=== PATIENT | female | born 1965 | race Caucasian/White ===

== ENCOUNTER 2016-09-19 08:40 | Emergency (ER) | payer BC ==
[2016-09-19 08:48] VITALS: BP 134/96
[2016-09-19 09:55] LABS: CHLORIDE,CL 101 mmol/L (98-107); SODIUM,NA 140 mmol/L (136-145)
--- NOTE | 2016-09-22 08:09 | ER ---
Date of Service: 09/19/2016 SUBJECTIVE: The patient presents to the emergency room with complaints of feeling lightheaded and nauseated for the past day and a half. She also complains of body aches and chills. She states she is not experiencing any vomiting or diarrhea. The patient states that she has not had any recent sick contacts. She states that she has not been experiencing any significant sore throat. PAST MEDICAL HISTORY: Migraine, headaches. MEDICATIONS: 1. Tramadol. 2. Ibuprofen. 3. Gabapentin. 4. Topamax. 5. Cyclobenzaprine. ALLERGIES: 1. Aspirin. 2. Toradol. 3. Imitrex. REVIEW OF SYSTEMS: General: Positive for fever and chills. HEENT: No sore throat, rhinorrhea, or congestion. Respiratory: No shortness of breath. Cardiac: Denies any substernal chest pain. No jaw, arm, neck, or back pain. Gastrointestinal: No abdominal pain. Genitourinary: Does complain of some mild dysuria. Remainder of her review of systems is within normal limits. PHYSICAL EXAMINATION: General: This is a 51-year-old female patient. No acute distress. Vital Signs: Blood pressure is 134/96, pulse rate is 88, temperature is 36.1, and respiratory rate is 18. Skin: Warm, pink, and dry. HEENT: Head is normocephalic, atraumatic. Mouth, oral mucosa is moist. No erythema or exudate noted in the hypopharynx. Neck: Supple. No masses. There is no lymphadenopathy. Lungs: Clear to auscultation. Heart: Regular rate and rhythm. Abdomen: Soft, nontender. There is no hepatosplenomegaly or masses noted. Extremities: Without edema. Neurologic: She is alert and oriented. Answers all questions appropriately. Her speech is fluent. Her gait is within normal limits. DIAGNOSTIC DATA: Urinalysis was obtained and was positive for trace of occult blood and she did have moderate leukocyte esterase, negative nitrites. She did have 10-20 wbc's per high-power field. Lactic acid was 1.1. Comprehensive metabolic panel was all noted to be within normal limits. CBC was all noted to be within normal limits. Influenza A and B were obtained, one were negative. Blood cultures x2 were obtained and are pending. ASSESSMENT: Urinary tract infection. PLAN: The patient will be started on Bactrim DS 1 twice daily for 7 days. Drink plenty of fluids. Tylenol and ibuprofen for fever and discomfort. All questions were answered. MWK: 09/21/2016 06:18:23 MODL: 09/21/2016 11:16:43 /[id number]
== END 2016-09-19 10:38 | disposition home or self-care (01) ==
LOC: VM.ED 08:40
DX: N39.0 Urinary tract infection, site not specified (principal); R50.9 Fever, unspecified; G43.909 Migraine, unspecified, not intractable, without status migrainosus; Z79.899 Other long term (current) drug therapy; Z88.8 Allergy status to other drugs, medicaments and biological substances
CPT/HCPCS: 36415; 71020; 80053; 81001; 83605; 85025; 86140; 87040; 87081; 87804; 87880; 99283

== ENCOUNTER 2016-10-04 11:50 | Emergency (ER) | payer BC ==
[2016-10-04 12:03] VITALS: BP 136/91
[2016-10-04] MEDS ORDERED: Ondansetron 4 MG Tab.DIS PO ONE (12:26)
[2016-10-04] MEDS ORDERED: diphenhydrAMINE 25 MG Cap PO ONE (12:26)
--- NOTE | 2016-10-04 12:31 | EDM.PDOC ---
ED HPI HEADACHE COMPLAINT - General Chief Complaint: Headache Stated Complaint: Migraine Time Seen by Provider: 10/04/16 12:22 Source of Information: Reports: Patient History Limitations: Reports: No limitations - History of Present Illness INITIAL COMMENTS - FREE TEXT/NARRATIVE: Patient woke up with migraine headache and did have an emesis throwing up 2 motrins. She does have a history of this. Allergic to toradol and imitrex. Describes headache as throbbing, does not have a point of origin but is her whole head. Light and sounds make worse. Headaches are not daily or weekly, but she does have them periodically. Similar symptoms to prior headaches. No one sided weakness or numbness. Denies smoking, drinking or drug use. Symptom Onset Date: 10/04/16 Symptom Onset Time: 08:00 Timing/Duration: Reports: sudden onset Location: Reports: generalized Quality: Reports: other (throbbing) Severity: Reports: moderate, similar to past headaches Associated Symptoms: Reports: photophobia - Related Data Allergies/ADRs: Allergies Allergy/AdvReac Type Severity Reaction Status Date / Time aspirin Allergy Nausea Verified 10/04/16 11:58 ketorolac tromethamine Allergy Nausea Verified 10/04/16 11:58 [From Toradol] sumatriptan [From Imitrex] Allergy Nausea Verified 10/04/16 11:58 sumatriptan succinate Allergy Nausea Verified 10/04/16 11:58 [From Imitrex] Home Meds: Home Meds Ibuprofen 400 mg PO Q4H PRN 07/20/14 [History] Gabapentin [Neurontin] 300 mg PO TID 09/19/16 [History] Past Medical History Neurological History: Reports: Migraines Oncologic (Cancer) History: Reports: Malignant melanoma - Past Surgical History Female Surgical History: Reports: Hysterectomy Musculoskeletal Surgical History: Reports: Arthroscopic procedure Social & Family History - Tobacco Use Smoking Status *Q: Former Smoker Used Tobacco, but Quit: Yes Month Tobacco Last Used: 30 years ago - Caffeine Use Caffeine Use: Reports: Soda - Alcohol Use Days Per Week of Alcohol Use: 0 - Recreational Drug Use Recreational Drug Use: No ED ROS GENERAL - Review of Systems Review Of Systems: See Below Constitutional: Reports: no symptoms HEENT: Reports: No symptoms Respiratory: Reports: No Symptoms Cardiovascular: Reports: No symptoms Endocrine: Reports: no symptoms GI/Abdominal: Reports: Nausea, Vomiting : Reports: no symptoms Musculoskeletal: Reports: no symptoms Skin: Reports: no symptoms Neurological: Reports: Headache Psychiatric: Reports: No symptoms Hematologic/Lymphatic: Reports: no symptoms Immunologic: Reports: no symptoms - Physical Exam Exam: See Below Exam Limited By: No limitations General Appearance: alert, WD/WN, mild distress Eye Exam: bilateral eye: EOMI, PERRL Head Exam: atraumatic, normocephalic Neck: normal inspection Respiratory/Chest: no respiratory distress, lungs clear, normal breath sounds Cardiovascular: normal peripheral pulses, regular rate, rhythm GI/Abdominal: normal bowel sounds, soft, non tender Neuro Exam (Abbreviated): alert, oriented, CN II-XII intact, normal cognition, normal gait, normal reflexes Extremities: normal inspection, normal range of motion, normal capillary refill Psychiatric: normal affect, normal mood Skin Exam: Warm, Dry, Intact Course - Vital Signs Last Recorded V/S: Last Vital Signs Temp 35.8 C 10/04/16 12:02 Pulse 85 10/04/16 12:02 Resp 16 10/04/16 12:02 BP 136/91 H 10/04/16 12:02 Pulse Ox 100 10/04/16 12:02 - Orders/Labs/Meds Meds: Medications Discontinued Medications Generic Name Dose Route Start Last Admin Trade Name Purvi PRN Reason Stop Dose Admin Chlorpromazine HCl 25 mg 10/04/16 12:26 10/04/16 12:51 Thorazine IM 10/04/16 12:27 25 mg ONETIME ONE Administration Diphenhydramine HCl 25 mg 10/04/16 12:26 10/04/16 12:51 Benadryl PO 10/04/16 12:27 25 mg ONETIME ONE Administration Ondansetron HCl 4 mg 10/04/16 12:26 10/04/16 12:51 Zofran Odt PO 10/04/16 12:27 4 mg ONETIME ONE Administration Departure - Departure Time of Disposition: 12:56 Disposition: Home, Self-Care 01 Condition: good Clinical Impression: Migraine Instructions: Recurrent Migraine Headache, [id number] Referrals: Jameson Garcia MD [Primary Care Provider] - Forms: ED Department Discharge Additional Instructions: Try to stay hydrated, this can help prevent migraines. You can always keep a diary to attempt to determine any other triggers; whether they be dietary, stress, exercise, emotional. Please call us with any questions or concerns. - Problem List & Annotations (1) Migraine SNOMED Code(s): 55745536 Code(s): G43.909 - MIGRAINE, UNSP, NOT INTRACTABLE, WITHOUT STATUS MIGRAINOSUS Status: Acute Priority: Medium - Problem List Review Problem List Initiated/Reviewed/Updated: Yes - Assessment/Plan Assessment:: migraine Plan: Try to stay hydrated, this can help prevent migraines. You can always keep a diary to attempt to determine any other triggers; whether they be dietary, stress, exercise, emotional. Please call us with any questions or concerns.
== END 2016-10-04 12:56 | disposition home or self-care (01) ==
LOC: VM.ED 11:50 → SUPCPDRO 11:50 → VM.ED 12:56
DX: G43.909 Migraine, unspecified, not intractable, without status migrainosus (principal); Z88.6 Allergy status to analgesic agent; Z88.8 Allergy status to other drugs, medicaments and biological substances; Z87.891 Personal history of nicotine dependence
CPT/HCPCS: 96372; 99283; A9270; J3230

== ENCOUNTER 2017-01-03 13:44 | Emergency (ER) | payer SELFPAY ==
--- NOTE | 2017-01-03 13:53 | EDM.PDOC ---
ED HPI GENERAL MEDICAL PROBLEM - General Chief Complaint: Back Pain or Injury Stated Complaint: thoracic back pain; no injury Time Seen by Provider: 01/03/17 13:48 Source of Information: Reports: Patient, Family, RN, RN Notes Reviewed History Limitations: Reports: No Limitations - History of Present Illness INITIAL COMMENTS - FREE TEXT/NARRATIVE: Patient presents ambulatory to the ED at [facility] complaining of thoracic back pain that started 2 days ago. Patient denies any injury or trauma. Patient states the pain was spontaneous and not sure why it hurts. No radiation of the pain. No numbness, tingling, or paresthesia. Patient is sharp and stabbing with certainly movements. Onset: Gradual Onset Date: 01/01/17 Duration: Getting Worse, Waxing/Waning Location: Reports: Back Quality: Reports: Sharp, Stabbing Severity: Moderate Improves with: Reports: None Worsens with: Reports: Movement Context: Denies: Activity, Exercise, Lifting, Sick Contact, Trauma Associated Symptoms: Reports: No Other Symptoms Middle Back Pain Score (Numeric/FACES): 10 - Related Data Allergies Allergy/AdvReac Type Severity Reaction Status Date / Time aspirin Allergy Nausea Verified 10/04/16 11:58 ketorolac tromethamine Allergy Nausea Verified 10/04/16 11:58 [From Toradol] sumatriptan [From Imitrex] Allergy Nausea Verified 10/04/16 11:58 sumatriptan succinate Allergy Nausea Verified 10/04/16 11:58 [From Imitrex] Home Meds: Home Meds Ibuprofen 400 mg PO Q4H PRN 07/20/14 [History] Gabapentin [Neurontin] 300 mg PO TID 09/19/16 [History] Past Medical History Neurological History: Reports: Migraines Oncologic (Cancer) History: Reports: Malignant Melanoma - Past Surgical History Musculoskeletal Surgical History: Reports: Arthroscopic Procedure Social & Family History - Tobacco Use Smoking Status *Q: Former Smoker Used Tobacco, but Quit: Yes Month Tobacco Last Used: 30 years ago - Caffeine Use Caffeine Use: Reports: Soda - Alcohol Use Days Per Week of Alcohol Use: 0 - Recreational Drug Use Recreational Drug Use: No ED ROS GENERAL - Review of Systems Review Of Systems: See Below Constitutional: Denies: Fever, Chills, Weakness Respiratory: Denies: Shortness of Breath, Cough Cardiovascular: Denies: Chest Pain, Palpitations Musculoskeletal: Reports: Back Pain, Muscle Pain, Muscle Stiffness Skin: Reports: No Symptoms Neurological: Reports: No Symptoms. Denies: Headache, Numbness, Paresthesia, Tingling ED EXAM,LOWER BACK PAIN/INJURY - Physical Exam Exam: See Below Exam Limited By: No Limitations General Appearance: Alert, No Apparent Distress Head: Atraumatic, Normocephalic Neck: Supple Respiratory/Chest: No Respiratory Distress, Lungs Clear, Normal Breath Sounds Cardiovascular: Regular Rate, Rhythm Back Exam: Decreased Range of Motion, Muscle Spasm, Paraspinal Tenderness Extremities: Normal Inspection Neurological: Alert, Oriented x 3 Skin Exam: Warm, Dry, Intact, Normal Color, No Rash Course - Vital Signs Last Recorded V/S: Last Vital Signs Temp 37.3 C 01/03/17 14:03 Pulse 98 01/03/17 14:03 Resp 12 01/03/17 14:03 BP 130/80 01/03/17 14:03 Pulse Ox 100 01/03/17 14:03 - Orders/Labs/Meds Orders: Active Orders 24 hr Category Date Time Status Thoracic Spine 3V [CR] Stat Exams 01/03/17 13:48 Taken Cyclobenzaprine [Take Home: Cyclobenzaprine 10 MG, 4 Med 01/03/17 16:12 Once Tab Pack] 1 packet PO ONETIME ONE Meds: Medications Discontinued Medications Generic Name Dose Route Start Last Admin Trade Name Purvi PRN Reason Stop Dose Admin Orphenadrine Citrate 60 mg 01/03/17 13:54 01/03/17 14:00 Norflex IM 01/03/17 13:55 60 mg ONETIME ONE Administration - Radiology Interpretation Free Text/Narrative:: Plain film thoracic xray: NO readiographic evidence of an acute fracture or other significant abnormality See scanned document in EMR CT Results Date: 01/03/17 CT Results Time: 16:03 Departure - Departure Time of Disposition: 16:13 Disposition: Home, Self-Care 01 Condition: Good Clinical Impression: Spasm of thoracic back muscle - Discharge Information Instructions: Muscle Cramps and Spasms, Back Pain, Adult, [id number] Referrals: Jameson Garcia MD [Primary Care Provider] - Forms: ED Department Discharge Additional Instructions: 1. Stay well hydrated and rest 2. Take muscle relaxers when needed 3. Alternate heat/ice to the back pain area 4. May alternate Tylenol/Advil as needed for pain 5. See your Primary as symptoms warrant - Problem List Review Problem List Initiated/Reviewed/Updated: Yes - My Orders Last 24 Hours: My Active Orders 01/03/17 13:48 Thoracic Spine 3V [CR] Stat 01/03/17 16:12 Cyclobenzaprine [Take Home: Cyclobenzaprine 10 MG, 4 Tab Pack] 1 packet PO ONETIME ONE - Assessment/Plan Last 24 Hours: My Active Orders 01/03/17 13:48 Thoracic Spine 3V [CR] Stat 01/03/17 16:12 Cyclobenzaprine [Take Home: Cyclobenzaprine 10 MG, 4 Tab Pack] 1 packet PO ONETIME ONE
[2017-01-03 14:10] VITALS: BP 130/80
[2017-01-03] MEDS ORDERED: Take Home: Cyclobenzaprine 10 MG Tab, 4 Tab Pack PO ONE (16:12)
== END 2017-01-03 16:20 | disposition home or self-care (01) ==
LOC: VM.ED 13:44
DX: M62.830 Muscle spasm of back (principal); Z88.6 Allergy status to analgesic agent; Z88.8 Allergy status to other drugs, medicaments and biological substances; Z87.891 Personal history of nicotine dependence
CPT/HCPCS: 72072; 96372; 99283; J2360; A9270-GY

== ENCOUNTER 2017-12-11 19:11 | Emergency (ER) | payer SELFPAY ==
[2017-12-11] MEDS ORDERED: Ketorolac 60 MG/2 ML SDV IM ONE (19:41)
[2017-12-11] MEDS ORDERED: diphenhydrAMINE 50 MG/ML SDV IM ONE (19:41)
[2017-12-11 20:25] VITALS: BP 124/91
--- NOTE | 2017-12-12 11:10 | EDM.PDOC ---
ED HPI GENERAL MEDICAL PROBLEM - General Chief Complaint: Headache Stated Complaint: Migraine Time Seen by Provider: 12/11/17 19:40 Source of Information: Reports: Patient History Limitations: Reports: No Limitations - History of Present Illness INITIAL COMMENTS - FREE TEXT/NARRATIVE: Pt. presents to ER with complaints of migraine headache for 24 hours. She denies any trauma to the head. +photophobia. States that she woke with the symptoms. She has a long history of migraine headaches and states that this is similar to migraines she has had in the past. She denies any fever or chills. No numbness/tingling in extremities. Location: Reports: Head Quality: Reports: Ache Treatments ICT TEACHER: Reports: Acetaminophen, Other Medication(s) Other Treatments ICT TEACHER: Tramadol Migraine Pain Score (Numeric/FACES): 10 - Related Data Allergies Allergy/AdvReac Type Severity Reaction Status Date / Time aspirin Allergy Nausea Verified 12/11/17 20:14 ketorolac tromethamine Allergy Nausea Verified 12/11/17 20:14 [From Toradol] sumatriptan [From Imitrex] Allergy Nausea Verified 12/11/17 20:14 sumatriptan succinate Allergy Nausea Verified 12/11/17 20:14 [From Imitrex] Home Meds: Home Meds Ibuprofen 400 mg PO Q4H PRN 07/20/14 [History] Gabapentin [Neurontin] 300 mg PO TID 09/19/16 [History] Past Medical History - Past Health History Medical/Surgical History: Denies Medical/Surgical History [employer]IVER History: Reports: Other (See Below) 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 Hysterectomy. Breast Reduction Neurological History: Reports: Migraines Oncologic (Cancer) History: Reports: Malignant Melanoma - Past Surgical History Female Surgical History: Reports: Hysterectomy Musculoskeletal Surgical History: Reports: Arthroscopic Procedure, Carpal Tunnel Other Musculoskeletal Surgeries/Procedures:: Patient states she has cancer in her leg and is not treating it Social & Family History - Tobacco Use Smoking Status *Q: Never Smoker - Caffeine Use Caffeine Use: Reports: Soda - Recreational Drug Use Recreational Drug Use: No ED ROS GENERAL - Review of Systems Review Of Systems: See Below Constitutional: Reports: No Symptoms HEENT: Reports: No Symptoms Respiratory: Reports: No Symptoms Cardiovascular: Reports: No Symptoms Endocrine: Reports: No Symptoms GI/Abdominal: Reports: No Symptoms : Reports: No Symptoms Musculoskeletal: Reports: No Symptoms Skin: Reports: No Symptoms Neurological: Reports: Headache. Denies: Dizziness, Numbness, Paresthesia, Pre- Existing Deficit, Seizure, Syncope, Tingling, Tremors, Trouble Speaking, Difficulty Walking, Weakness, Change in Speech, Gait Disturbance Psychiatric: Reports: No Symptoms Hematologic/Lymphatic: Reports: No Symptoms Immunologic: Reports: No Symptoms ED EXAM, GENERAL - Physical Exam Exam: See Below Exam Limited By: No Limitations General Appearance: Alert, WD/WN, No Apparent Distress Eye Exam: Bilateral Eye: EOMI, Normal Fundi, Normal Inspection Ears: Normal External Exam, Normal Canal, Hearing Grossly Normal, Normal TMs Ear Exam: Bilateral Ear: Auricle Normal, Canal Normal, TM normal Nose: Normal Inspection, Normal Mucosa, No Blood Throat/Mouth: Normal Inspection, Normal Lips, Normal Teeth, Normal Gums, Normal Oropharynx, Normal Voice, No Airway Compromise Head: Atraumatic, Normocephalic Neck: Normal Inspection, Supple, Non-Tender, Full Range of Motion Respiratory/Chest: No Respiratory Distress, Lungs Clear, Normal Breath Sounds, No Accessory Muscle Use, Chest Non-Tender Cardiovascular: Normal Peripheral Pulses, Regular Rate, Rhythm, No Edema, No Gallop, No JVD, No Murmur, No Rub Extremities: Normal Inspection, Normal Range of Motion, Non-Tender, Normal Capillary Refill, No Pedal Edema Neurological: Alert, Oriented, CN II-XII Intact, Normal Cognition, Normal Gait, Normal Reflexes, No Motor/Sensory Deficits Psychiatric: Normal Affect, Normal Mood Skin Exam: Warm, Dry, Intact, Normal Color, No Rash Lymphatic: No Adenopathy Course - Vital Signs Last Recorded V/S: Last Vital Signs Temp 36.6 C 12/11/17 19:40 Pulse 84 12/11/17 19:40 Resp 14 12/11/17 19:40 BP 124/91 H 12/11/17 19:40 Pulse Ox 95 12/11/17 19:40 - Orders/Labs/Meds Meds: Medications Discontinued Medications Generic Name Dose Route Start Last Admin Trade Name Freq PRN Reason Stop Dose Admin Chlorpromazine HCl 50 mg 12/11/17 19:40 12/11/17 20:02 Thorazine IM 12/11/17 19:41 50 mg ONETIME ONE Administration Diphenhydramine HCl 50 mg 12/11/17 19:41 12/11/17 20:02 Benadryl IM 12/11/17 19:42 50 mg ONETIME ONE Administration Ketorolac Tromethamine 60 mg 12/11/17 19:41 12/11/17 20:02 Toradol IM 12/11/17 19:42 Not Given ONETIME ONE Departure - Departure Time of Disposition: 20:21 Disposition: Home, Self-Care 01 Clinical Impression: Migraine - Discharge Information Instructions: Migraine Headache, [id number] Referrals: Jameson Garcia MD [Primary Care Provider] - Forms: ED Department Discharge Additional Instructions: Home to rest. Follow-up in clinic in 7-10 days, sooner if not improving.
== END 2017-12-11 20:21 | disposition home or self-care (01) ==
LOC: SUPCPDRO 19:11 → VM.ED 19:11
DX: G43.909 Migraine, unspecified, not intractable, without status migrainosus (principal); Z88.8 Allergy status to other drugs, medicaments and biological substances; Z88.6 Allergy status to analgesic agent
CPT/HCPCS: 96372; 99283; J1200; J3230

== ENCOUNTER 2018-02-26 17:44 | Emergency (ER) | payer MEDICAID ==
[2018-02-26 17:56] VITALS: BP 133/89
--- NOTE | 2018-02-26 18:13 | EDM.PDOC ---
ED HPI GENERAL MEDICAL PROBLEM - General Chief Complaint: Lower Extremity Injury/Pain Stated Complaint: knee pain Time Seen by Provider: 02/26/18 17:45 Source of Information: Reports: Patient History Limitations: Reports: No Limitations - History of Present Illness INITIAL COMMENTS - FREE TEXT/NARRATIVE: Pt comes into the Emergency Room with complaint of knee pain. Pt states her "knee gave out" when she was walking. She did not fall when it "gave out" but she did have pain right away. Pt is able to ambulate on her own will but does hurt when she bears weight. Denies any swelling, redness, warmth, numbness, tingling, or pain radiating up or down her leg. The pain is localized to the lateral aspect of the knee and when it is elevated the pain is much less. Onset: Sudden Onset Time: 18:20 Duration: Constant Location: Reports: Lower Extremity, Left Quality: Reports: Ache, Throbbing Improves with: Reports: Immobilization, Rest Worsens with: Reports: Movement Left Knee Pain Score (Numeric/FACES): 10 - Related Data Allergies Allergy/AdvReac Type Severity Reaction Status Date / Time aspirin Allergy Nausea Verified 02/26/18 17:51 ketorolac tromethamine Allergy Nausea Verified 02/26/18 17:51 [From Toradol] sumatriptan [From Imitrex] Allergy Nausea Verified 02/26/18 17:51 sumatriptan succinate Allergy Nausea Verified 02/26/18 17:51 [From Imitrex] Home Meds: Home Meds Ibuprofen 400 mg PO Q4H PRN 07/20/14 [History] Past Medical History - Past Health History Medical/Surgical History: Denies Medical/Surgical History 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 Hysterectomy. Breast Reduction Neurological History: Reports: Migraines Oncologic (Cancer) History: Reports: Malignant Melanoma - Past Surgical History Female Surgical History: Reports: Hysterectomy Musculoskeletal Surgical History: Reports: Arthroscopic Procedure, Carpal Tunnel Other Musculoskeletal Surgeries/Procedures:: Patient states she has cancer in her leg and is not treating it Social & Family History - Tobacco Use Smoking Status *Q: Never Smoker - Caffeine Use Caffeine Use: Reports: Soda Review of Systems - Review of Systems Review Of Systems: ROS reveals no pertinent complaints other than HPI. ED EXAM, GENERAL - Physical Exam Exam: See Below Exam Limited By: No Limitations General Appearance: Alert, WD/WN, No Apparent Distress Eye Exam: Bilateral Eye: EOMI, PERRL Head: Atraumatic, Normocephalic Neck: Normal Inspection, Supple, Non-Tender, Full Range of Motion Respiratory/Chest: No Respiratory Distress, Lungs Clear, Normal Breath Sounds, No Accessory Muscle Use, Chest Non-Tender Cardiovascular: Normal Peripheral Pulses, Regular Rate, Rhythm, No Edema Back Exam: Normal Inspection, Full Range of Motion Extremities: Normal Inspection, No Pedal Edema, Normal Capillary Refill, Leg Pain. No: Pedal Edema, Slow Capillary Refill, Joint Swelling, Arm Pain, Increased Warmth, Mottled, Pallor, Redness Neurological: Alert, Oriented, CN II-XII Intact Psychiatric: Normal Affect, Normal Mood Skin Exam: Warm, Dry, Intact, Normal Color, No Rash Course - Vital Signs Last Recorded V/S: Last Vital Signs Temp 37.5 C 02/26/18 17:53 Pulse 92 02/26/18 17:53 Resp 16 02/26/18 17:53 BP 133/89 02/26/18 17:53 Pulse Ox 100 02/26/18 17:53 Departure - Departure Time of Disposition: 18:10 Disposition: Home, Self-Care 01 Condition: Good Clinical Impression: Strain of left knee Qualifiers: Encounter type: initial encounter Qualified Code(s): S86.912A - Strain of unspecified muscle(s) and tendon(s) at lower leg level, left leg, initial encounter - Discharge Information *PRESCRIPTION DRUG MONITORING PROGRAM REVIEWED*: Not Applicable *COPY OF PRESCRIPTION DRUG MONITORING REPORT IN PATIENT BERTO: Not Applicable Instructions: Muscle Strain, [id number] Referrals: Jameson Garcia MD [Primary Care Provider] - Forms: ED Department Discharge Additional Instructions: 1. rest 2. use ice on the extremity 4 times a day for 20 minute intervals 3. Elevate the extremity above the level of the heart as much as possible over the course of the next 2-3 days 4. Can use Tylenol and ibuprofen as needed 5. Activity and diet as tolerated 6. Use brace immobilizer to help with support instability for the next 3-5 days. Can take off during shower and nighttime 7. If not better in 2 weeks it is advisable to follow up with her PCP for further evaluation and treatment options 8. If any questions and concerns arise please contact the emergency department or your primary care provider - Assessment/Plan Assessment:: 1. Knee pain Plan: 1. Brace to right knee for stability 2. Education regarding [facility].I.C.[facility] 3. Follow up instructions given
== END 2018-02-26 18:15 | disposition home or self-care (01) ==
LOC: VM.ED 17:44
DX: S86.912A Strain of unspecified muscle(s) and tendon(s) at lower leg level, left leg, initial encounter (principal); Z88.6 Allergy status to analgesic agent; Z88.8 Allergy status to other drugs, medicaments and biological substances; X58.XXXA Exposure to other specified factors, initial encounter
CPT/HCPCS: 99283

== ENCOUNTER 2018-07-31 14:11 | Emergency (ER) | payer MEDICAID ==
[2018-07-31] MEDS ORDERED: diphenhydrAMINE 50 MG/ML SDV IM ONE (14:50)
[2018-07-31] MEDS ORDERED: Ondansetron 4 MG/2 ML SDV IM ONE (14:51)
--- NOTE | 2018-07-31 15:02 | EDM.PDOC ---
ED HPI GENERAL MEDICAL PROBLEM - General Chief Complaint: Headache Stated Complaint: HEADACHE Time Seen by Provider: 07/31/18 14:43 Source of Information: Reports: Patient History Limitations: Reports: No Limitations - History of Present Illness INITIAL COMMENTS - FREE TEXT/NARRATIVE: Patient presents with complaints of migraine headache that started last night. Similar to others she has had in the past. Described as unilateral, throbbing, made worse by bright lights and loud noises. Describes nausea, vomiting. No abdominal pain. No blood emesis, urine, or stools. 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 Onset: Gradual Onset Date: 07/30/18 Duration: Intermittent Location: Reports: Head Quality: Reports: Throbbing Severity: Severe Improves with: Reports: None Worsens with: Reports: None Associated Symptoms: Reports: Nausea/Vomiting Headache Pain Score (Numeric/FACES): 10 - Related Data Allergies Allergy/AdvReac Type Severity Reaction Status Date / Time aspirin Allergy Nausea Verified 07/31/18 14:26 ketorolac tromethamine Allergy Nausea Verified 07/31/18 14:26 [From Toradol] sumatriptan [From Imitrex] Allergy Nausea Verified 07/31/18 14:26 sumatriptan succinate Allergy Nausea Verified 07/31/18 14:26 [From Imitrex] Home Meds: Home Meds Ibuprofen 400 mg PO Q4H PRN 07/20/14 [History] Past Medical History - Past Health History Medical/Surgical History: Denies Medical/Surgical History MEDIA EXECUTIVE History: Reports: Other (See Below) Other MEDIA EXECUTIVE 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 Hysterectomy. Breast Reduction Neurological History: Reports: Migraines Oncologic (Cancer) History: Reports: Malignant Melanoma - Past Surgical History Female Surgical History: Reports: Hysterectomy Musculoskeletal Surgical History: Reports: Arthroscopic Procedure, Carpal Tunnel Other Musculoskeletal Surgeries/Procedures:: Patient states she has cancer in her leg and is not treating it Social & Family History - Tobacco Use Smoking Status *Q: Never Smoker - Caffeine Use Caffeine Use: Reports: Soda - Recreational Drug Use Recreational Drug Use: No ED ROS GENERAL - Review of Systems Review Of Systems: See Below Constitutional: Reports: No Symptoms HEENT: Reports: No Symptoms Respiratory: Reports: No Symptoms Cardiovascular: Reports: No Symptoms Endocrine: Reports: No Symptoms GI/Abdominal: Reports: Nausea, Vomiting : Reports: No Symptoms Musculoskeletal: Reports: No Symptoms Skin: Reports: No Symptoms Neurological: Reports: Headache Psychiatric: Reports: No Symptoms Hematologic/Lymphatic: Reports: No Symptoms Immunologic: Reports: No Symptoms - Physical Exam Exam: See Below Exam Limited By: No Limitations General Appearance: Alert, WD/WN, No Apparent Distress Eye Exam: Bilateral Eye: EOMI, Normal Inspection, PERRL Ears: Normal TMs Throat/Mouth: Normal Inspection, Normal Lips, Normal Teeth, Normal Gums, Normal Oropharynx, Normal Voice, No Airway Compromise Head Exam: Atraumatic, Normocephalic Neck: Normal Inspection, Supple, Non-Tender, Full Range of Motion Respiratory/Chest: No Respiratory Distress, Lungs Clear, Normal Breath Sounds, No Accessory Muscle Use, Chest Non-Tender Cardiovascular: Normal Peripheral Pulses, Regular Rate, Rhythm, No Edema, No Gallop, No JVD, No Murmur, No Rub GI/Abdominal: Normal Bowel Sounds, Soft, Non-Tender, No Organomegaly, No Distention, No Abnormal Bruit, No Mass Neuro Exam (Abbreviated): Alert, Oriented, CN II-XII Intact, Normal Cognition, Normal Gait, Normal Reflexes, No Motor/Sensory Deficits Back Exam: Normal Inspection, Full Range of Motion, NT Extremities: Normal Inspection, Normal Range of Motion, Non-Tender, No Pedal Edema, Normal Capillary Refill Psychiatric: Normal Affect, Normal Mood Skin Exam: Warm, Dry, Intact, Normal Color, No Rash Course - Vital Signs Last Recorded V/S: Last Vital Signs Temp 36.1 C 07/31/18 14:22 Pulse 90 07/31/18 14:22 Resp 20 07/31/18 14:22 BP 134/78 07/31/18 14:22 Pulse Ox 100 07/31/18 14:22 - Orders/Labs/Meds Orders: Active Orders 24 hr Category Date Time Status Ondansetron [Zofran] Med 07/31/18 14:51 Once 4 mg IM ONETIME ONE chlorproMAZINE [Thorazine] Med 07/31/18 14:50 Once 25 mg IM ONETIME ONE diphenhydrAMINE [Benadryl] Med 07/31/18 14:50 Once 50 mg IM ONETIME ONE Meds: Medications Discontinued Medications Generic Name Dose Route Start Last Admin Trade Name Freq PRN Reason Stop Dose Admin Chlorpromazine HCl 25 mg 07/31/18 14:50 Thorazine IM 07/31/18 14:51 ONETIME ONE Diphenhydramine HCl 50 mg 07/31/18 14:50 Benadryl IM 07/31/18 14:51 ONETIME ONE Ondansetron HCl 4 mg 07/31/18 14:51 Zofran IM 07/31/18 14:52 ONETIME ONE Departure - Departure Time of Disposition: 16:10 Disposition: Home, Self-Care 01 Condition: Good Clinical Impression: Migraine - Discharge Information *PRESCRIPTION DRUG MONITORING PROGRAM REVIEWED*: Not Applicable *COPY OF PRESCRIPTION DRUG MONITORING REPORT IN PATIENT BERTO: Not Applicable Instructions: Recurrent Migraine Headache, [id number] Referrals: Jameson Garcia MD [Primary Care Provider] - Additional Instructions: Plan 1. Stay well hydrated 2. Avoid dietary and behavioral triggers such as caffeine, smoking, chocolate, too much stress or exercise 3. Follow up with your primary provider for additional medications as needed 4. Avoid overuse of NSAID medications like ibuprofen, aleve, motrin as these can cause rebound headaches Please call with any questions or concerns - Problem List & Annotations (1) Migraine SNOMED Code(s): 45966152 Code(s): G43.909 - MIGRAINE, UNSP, NOT INTRACTABLE, WITHOUT STATUS MIGRAINOSUS Status: Acute Priority: Medium Current Visit: No - Problem List Review Problem List Initiated/Reviewed/Updated: Yes - My Orders Last 24 Hours: My Active Orders 07/31/18 14:50 chlorproMAZINE [Thorazine] 25 mg IM ONETIME ONE diphenhydrAMINE [Benadryl] 50 mg IM ONETIME ONE 07/31/18 14:51 Ondansetron [Zofran] 4 mg IM ONETIME ONE - Assessment/Plan Last 24 Hours: My Active Orders 07/31/18 14:50 chlorproMAZINE [Thorazine] 25 mg IM ONETIME ONE diphenhydrAMINE [Benadryl] 50 mg IM ONETIME ONE 07/31/18 14:51 Ondansetron [Zofran] 4 mg IM ONETIME ONE Assessment:: migraine headache Plan: Plan 1. Stay well hydrated 2. Avoid dietary and behavioral triggers such as caffeine, smoking, chocolate, too much stress or exercise 3. Follow up with your primary provider for additional medications as needed 4. Avoid overuse of NSAID medications like ibuprofen, aleve, motrin as these can cause rebound headaches Please call with any questions or concerns
[2018-07-31 16:02] VITALS: BP 105/57
== END 2018-07-31 16:10 | disposition home or self-care (01) ==
LOC: VM.ED 14:11
DX: G43.909 Migraine, unspecified, not intractable, without status migrainosus (principal); Z88.6 Allergy status to analgesic agent; Z88.8 Allergy status to other drugs, medicaments and biological substances
CPT/HCPCS: 96372; 99283; J1200; J2405; J3230

== ENCOUNTER 2019-04-15 10:42 | Emergency (ER) | payer MEDICARE, MEDICAID ==
[2019-04-15] MEDS ORDERED: Ondansetron 4 MG/2 ML SDV IM ONE (11:01)
[2019-04-15] MEDS ORDERED: hydrOXYzine HCl 50 MG/ML SDV IM ONE (11:01)
[2019-04-15 11:10] VITALS: BP 136/82; PULSE 102
--- NOTE | 2019-04-15 11:10 | EDM.PDOC ---
ED HPI GENERAL MEDICAL PROBLEM - General Chief Complaint: Headache Stated Complaint: MIGRAINE Time Seen by Provider: 04/15/19 11:00 Source of Information: Reports: Patient History Limitations: Reports: No Limitations - History of Present Illness INITIAL COMMENTS - FREE TEXT/NARRATIVE: Patient comes into the emergency department with complaint of a migraine. Patient does have an extensive history of migraines. She states that her last migraine was approximately 9 months ago. She did present to the emergency department at that time for relief. She states that the relief that was provided at that visit did help her. Upon reviewing the chart it looks like she was given Thorazine, hydroxyzine, and Zofran. Patient states that the migraine came on approximately 1:30 AM and has continued ever since. Patient states that she did get spots and floaters when she woke up in the middle the night and she became nauseated. She states that she has difficulty looking into lighted areas or directly at bright objects. She denies any symptom relief with any activity or nonmedication modalities. She did take Tylenol at home however she states she had no relief with that as well. She states most the time when she has migraine she does take Tylenol which helps with the migraines. However this time and just did not help. Patient continues to have nausea. Patient denies any changes in her vision, chest pain, shortness of breath, GI upset, peripheral edema. Denies any other concerns or complaints. They symptoms are characteristic of her previous migraines that she does not feel they symptoms today are any different. Onset: Sudden Location: Reports: Head Quality: Reports: Throbbing Severity: Severe Improves with: Reports: None Worsens with: Reports: None Associated Symptoms: Reports: Headaches, Nausea/Vomiting. 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 - Related Data Allergies Allergy/AdvReac Type Severity Reaction Status Date / Time aspirin Allergy Nausea Verified 04/15/19 11:01 ketorolac tromethamine Allergy Nausea Verified 04/15/19 11:01 [From Toradol] sumatriptan [From Imitrex] Allergy Nausea Verified 04/15/19 11:01 sumatriptan succinate Allergy Nausea Verified 04/15/19 11:01 [From Imitrex] Home Meds: Home Meds Ibuprofen 400 mg PO Q4H PRN 07/20/14 [History] Past Medical History - Past Health History Medical/Surgical History: Denies Medical/Surgical History 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 Hysterectomy. Breast Reduction Neurological History: Reports: Migraines Oncologic (Cancer) History: Reports: Malignant Melanoma - Past Surgical History Female Surgical History: Reports: Hysterectomy Musculoskeletal Surgical History: Reports: Arthroscopic Procedure, Carpal Tunnel Other Musculoskeletal Surgeries/Procedures:: Patient states she has cancer in her leg and is not treating it Social & Family History - Caffeine Use Caffeine Use: Reports: Soda ED ROS GENERAL - Review of Systems Review Of Systems: ROS reveals no pertinent complaints other than HPI. Constitutional: Reports: No Symptoms HEENT: Reports: No Symptoms Respiratory: Reports: No Symptoms Cardiovascular: Reports: No Symptoms Endocrine: Reports: No Symptoms GI/Abdominal: Reports: No Symptoms : Reports: No Symptoms Musculoskeletal: Reports: No Symptoms Skin: Reports: No Symptoms Neurological: Reports: No Symptoms Psychiatric: Reports: No Symptoms - Physical Exam Exam: See Below Exam Limited By: No Limitations General Appearance: Alert, WD/WN, No Apparent Distress Throat/Mouth: Normal Inspection, Normal Lips, Normal Voice, No Airway Compromise Head Exam: Atraumatic, Normocephalic Neck: Normal Inspection, Supple, Full Range of Motion Respiratory/Chest: No Respiratory Distress, No Accessory Muscle Use Cardiovascular: Normal Peripheral Pulses, Regular Rate, Rhythm, No Edema Neuro Exam (Abbreviated): Alert, Oriented, Normal Gait (walks with a cane ) Back Exam: Full Range of Motion Extremities: Normal Inspection, Normal Range of Motion, Non-Tender, No Pedal Edema, Normal Capillary Refill Psychiatric: Normal Affect, Normal Mood Skin Exam: Warm, Dry, Intact, Normal Color Course - Orders/Labs/Meds Meds: Medications Discontinued Medications Generic Name Dose Route Start Last Admin Trade Name Freq PRN Reason Stop Dose Admin Chlorpromazine HCl 25 mg 04/15/19 11:01 Thorazine IM 04/15/19 11:02 ONETIME ONE Hydroxyzine HCl 50 mg 04/15/19 11:01 Vistaril IM 04/15/19 11:02 ONETIME ONE Ondansetron HCl 4 mg 04/15/19 11:01 Zofran IM 04/15/19 11:02 ONETIME ONE Departure - Departure Time of Disposition: 11:40 Disposition: Home, Self-Care 01 Condition: Good Clinical Impression: Migraine - Discharge Information *PRESCRIPTION DRUG MONITORING PROGRAM REVIEWED*: Yes *COPY OF PRESCRIPTION DRUG MONITORING REPORT IN PATIENT BERTO: Yes Instructions: Migraine Headache Additional Instructions: 1. rest 2. increase your water intake 3. avoid bright lights and loud noises today 4. Follow up with PCP if symptoms continue or worsen 5. Call with any questions or concerns - Assessment/Plan Assessment:: 1. migraine Plan: 1. Patient was given Thorazine, hydroxyzine HCL, and Zofran in the emergency department to help with her migraine 2. Education provided the patient regarding [id number] medication management, activity, diet, and follow-up 3. The [place] PDMP was reviewed and the patient had tramadol 50 mg tablets dispensed on 04/03/19 she was given 30 tablets. Also on 03/25/19 she was given tramadol 50 mg 30 tablets then on 03/07/2019 she was given 50 mg tramadol 30 tablets 4. All questions and concerns addressed prior to patient's discharge
== END 2019-04-15 11:44 | disposition home or self-care (01) ==
LOC: VM.ED 10:42
DX: G43.909 Migraine, unspecified, not intractable, without status migrainosus (principal); Z88.1 Allergy status to other antibiotic agents; Z88.6 Allergy status to analgesic agent
CPT/HCPCS: 96372; 99283; J2405; J3230; J3410

== ENCOUNTER 2019-09-09 14:07 | Emergency (ER) | payer MEDICARE, MEDICAID ==
[2019-09-09 14:18] VITALS: BP 137/70; PULSE 87
--- NOTE | 2019-09-09 14:38 | EDM.PDOC ---
ED HPI GENERAL MEDICAL PROBLEM - General Chief Complaint: Headache Stated Complaint: MIGRAINE Time Seen by Provider: 09/09/19 14:28 Source of Information: Reports: Patient History Limitations: Reports: No Limitations - History of Present Illness INITIAL COMMENTS - FREE TEXT/NARRATIVE: Patient presents to ER with c/o migraine. She has a long history of migraines since she was about 12. This started last night at 2:00 am. She took Tylenol. This is unilateral, throbbing and severe. nothing makes it better and everything makes it worse. She also has pain in her left leg where she had extensive grafting for 4 different types of cancer that started as an ulcer. This was ultimately treated with grafts and healed. She feels nauseous, she has not been able to eat. She does not have URI or sinus sx or other pain or problem. She is not concerned that this is other than her normal migraine. 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 Headache Pain Score (Numeric/FACES): 10 Generalized Pain Score (Numeric/FACES): 10 (all over head) - Related Data Allergies Allergy/AdvReac Type Severity Reaction Status Date / Time aspirin Allergy Nausea Verified 09/09/19 14:26 ketorolac tromethamine Allergy Nausea Verified 09/09/19 14:26 [From Toradol] sumatriptan [From Imitrex] Allergy Nausea Verified 09/09/19 14:26 sumatriptan succinate Allergy Nausea Verified 09/09/19 14:26 [From Imitrex] Home Meds: Home Meds Ibuprofen 400 mg PO Q4H PRN 07/20/14 [History] Past Medical History - Past Health History Medical/Surgical History: Denies Medical/Surgical History 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 Hysterectomy. Breast Reduction Neurological History: Reports: Migraines Oncologic (Cancer) History: Reports: Malignant Melanoma - Past Surgical History Female Surgical History: Reports: Hysterectomy Musculoskeletal Surgical History: Reports: Arthroscopic Procedure, Carpal Tunnel Other Musculoskeletal Surgeries/Procedures:: Patient states she has cancer in her leg and is not treating it Social & Family History - Caffeine Use Caffeine Use: Reports: Soda ED ROS GENERAL - Review of Systems Review Of Systems: See Below Constitutional: Reports: No Symptoms. Denies: Fever, Chills HEENT: Reports: No Symptoms. Denies: Vertigo Respiratory: Reports: No Symptoms Cardiovascular: Reports: No Symptoms Endocrine: Reports: No Symptoms GI/Abdominal: Reports: Nausea : Reports: No Symptoms Musculoskeletal: Reports: Leg Pain Skin: Reports: No Symptoms Neurological: Reports: Headache. Denies: Numbness, Trouble Speaking, Difficulty Walking, Weakness Psychiatric: Reports: No Symptoms Hematologic/Lymphatic: Reports: No Symptoms - Physical Exam Exam: See Below Exam Limited By: No Limitations General Appearance: Alert, WD/WN Eye Exam: Bilateral Eye: EOMI, Normal Inspection, PERRL Ears: Normal External Exam, Normal Canal, Normal TMs Nose: Normal Inspection Throat/Mouth: Normal Inspection, Normal Oropharynx, No Airway Compromise Head Exam: Atraumatic, Normocephalic. No: Facial Swelling, Sinus Tenderness Neck: Normal Inspection, Supple Respiratory/Chest: No Respiratory Distress, Lungs Clear, Normal Breath Sounds Cardiovascular: Regular Rate, Rhythm, No Edema GI/Abdominal: Normal Bowel Sounds, Soft, Non-Tender Neuro Exam (Abbreviated): Alert, Oriented, CN II-XII Intact, Normal Cognition, Normal Gait, Normal Reflexes, No Motor/Sensory Deficits. No: Memory Loss Recent Events, Sensory/Motor Deficit Extremities: Other (left lower leg with large skin graft area secondary to surgery . She walks with a cane secondary to the resulting pain, weakness in this leg. This has not changed.) Psychiatric: Normal Affect, Normal Mood Skin Exam: Warm, Dry, Normal Color Course - Vital Signs Last Recorded V/S: Last Vital Signs Temp 97.7 F 09/09/19 14:10 Pulse 87 09/09/19 14:10 Resp 16 09/09/19 14:10 BP 137/70 09/09/19 14:10 Pulse Ox 98 09/09/19 14:10 - Orders/Labs/Meds Meds: Medications Discontinued Medications Generic Name Dose Route Start Last Admin Trade Name Freq PRN Reason Stop Dose Admin Chlorpromazine HCl 25 mg 09/09/19 14:47 03/14/20 14:54 Thorazine IM 09/09/19 14:48 25 mg ONETIME ONE Administration Sodium Chloride 1,000 mls @ 150 mls/hr 09/09/19 14:45 Normal Saline IV ASDIRECTED [facility] Ondansetron HCl 4 mg 09/09/19 14:44 09/09/19 14:54 Zofran IM 09/09/19 14:45 4 mg ONETIME ONE Administration - Re-Assessments/Exams Free Text/Narrative Re-Assessment/Exam: 09/09/19 18:47 Prior to discharge she reports her headache is much better, nausea is resolved and she would like to go home. Departure - Departure Time of Disposition: 15:19 Disposition: Home, Self-Care 01 Condition: Good Clinical Impression: Migraine - Discharge Information *PRESCRIPTION DRUG MONITORING PROGRAM REVIEWED*: Not Applicable *COPY OF PRESCRIPTION DRUG MONITORING REPORT IN PATIENT BERTO: Not Applicable Instructions: Migraine Headache, [id number] Referrals: Toño Vaughn PA-C [Primary Care Provider] - Forms: ED Department Discharge Additional Instructions: No heavy activity today Sepsis Event Note - Evaluation Sepsis Screening Result: No Definite Risk - Focused Exam Vital Signs: Vital Signs Temp Pulse Resp BP Pulse Ox 09/09/19 14:10 97.7 F 87 16 137/70 98 Date Exam was Performed: 09/09/19 Time Exam was Performed: 19:03 - Problem List & Annotations (1) Migraine SNOMED Code(s): 03986572 Code(s): G43.909 - MIGRAINE, UNSP, NOT INTRACTABLE, WITHOUT STATUS MIGRAINOSUS Status: Acute Priority: Medium - Problem List Review Problem List Initiated/Reviewed/Updated: Yes - Assessment/Plan Assessment:: Migraine headache Plan: She was treated with Zofran and Thorazine IM as this was successful in the past She verbalized resolution of nausea and improvement of migraine and desires to go home. Exam is unremarkable and she is instructed re: return precautions and suggested follow up. She was discharged in the company of her mother in hemodynamically stable condition.
[2019-09-09] MEDS ORDERED: Sodium Chloride 0.9% 1,000 ML IV SCH (14:45)
[2019-09-09] MEDS: Ondansetron 4 MG/2 ML SDV IM ONE (14:54)
== END 2019-09-09 15:33 | disposition home or self-care (01) ==
LOC: VM.ED 14:07
DX: G43.909 Migraine, unspecified, not intractable, without status migrainosus (principal); Z88.6 Allergy status to analgesic agent; Z88.8 Allergy status to other drugs, medicaments and biological substances
CPT/HCPCS: 96372; 99283; 99283-GF; J2405; J3230

== ENCOUNTER 2021-02-02 15:40 | Emergency (ER) | payer MEDICARE, MEDICAID ==
--- NOTE | 2021-02-02 16:13 | EDM.PDOC ---
ED HPI GENERAL MEDICAL PROBLEM - General Chief Complaint: Lower Extremity Injury/Pain Stated Complaint: INJURY TO L FOOT Time Seen by Provider: 02/02/21 16:00 Source of Information: Reports: Patient History Limitations: Reports: No Limitations - History of Present Illness INITIAL COMMENTS - FREE TEXT/NARRATIVE: Patient comes into the emergency department with a leftToe/foot injury. Patient states approximately 2 and half hours prior to arrival to the emergency department patient was walking in her house and stubbed her fourth and fifth metatarsal on a box/chair stating that it caused significant mount of pain and discomfort right away. She says over the course the last 2 hours has become more difficulty to ambulate on it. She states that it is tender to touch and throbbing sensation. She denies any CMS concerns but range of motion is limited due to the pain. Patient denies any deformity, bleeding, redness, or heat. Patient states she is able to ambulate on it however as stated above it does cause significant discomfort and pain. Patient denies any other injuries to that foot in the past Onset: Sudden Quality: Reports: Throbbing Severity: Moderate Improves with: Reports: Rest Worsens with: Reports: Movement Context: Reports: Trauma Associated Symptoms: Reports: No Other Symptoms - Related Data Allergies Allergy/AdvReac Type Severity Reaction Status Date / Time aspirin Allergy Nausea Verified 09/09/19 14:26 ketorolac tromethamine Allergy Nausea Verified 09/09/19 14:26 [From Toradol] sumatriptan [From Imitrex] Allergy Nausea Verified 09/09/19 14:26 sumatriptan succinate Allergy Nausea Verified 09/09/19 14:26 [From Imitrex] Home Meds: Home Meds Ibuprofen 400 mg PO Q4H PRN 07/20/14 [History] Past Medical History - Past Health History Medical/Surgical History: Denies Medical/Surgical History 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 Hysterectomy. Breast Reduction Neurological History: Reports: Migraines Oncologic (Cancer) History: Reports: Malignant Melanoma - Past Surgical History Female Surgical History: Reports: Hysterectomy Musculoskeletal Surgical History: Reports: Arthroscopic Procedure, Carpal Tunnel Other Musculoskeletal Surgeries/Procedures:: Patient states she has cancer in her leg and is not treating it Social & Family History - Caffeine Use Caffeine Use: Reports: Soda ED ROS GENERAL - Review of Systems Review Of Systems: Comprehensive ROS is negative, except as noted in HPI. Constitutional: Reports: No Symptoms HEENT: Reports: No Symptoms Respiratory: Reports: No Symptoms Cardiovascular: Reports: No Symptoms Endocrine: Reports: No Symptoms GI/Abdominal: Reports: No Symptoms : Reports: No Symptoms Musculoskeletal: Reports: Foot Pain Skin: Reports: No Symptoms Neurological: Reports: No Symptoms Psychiatric: Reports: No Symptoms Hematologic/Lymphatic: Reports: No Symptoms ED EXAM, GENERAL - Physical Exam Exam: See Below Exam Limited By: No Limitations General Appearance: Alert, WD/WN, No Apparent Distress Head: Atraumatic, Normocephalic Neck: Normal Inspection, Supple, Non-Tender, Full Range of Motion Respiratory/Chest: No Respiratory Distress, Lungs Clear, Normal Breath Sounds, Chest Non-Tender Cardiovascular: Normal Peripheral Pulses, Regular Rate, Rhythm Back Exam: Normal Inspection, Full Range of Motion Extremities: Normal Inspection, No Pedal Edema, Normal Capillary Refill, Limited Range of Motion. No: Arm Pain, Al's Sign, Leg Pain, Increased Warmth, Mottled, Redness Neurological: Alert, Oriented Departure - Departure Time of Disposition: 16:40 Disposition: Home, Self-Care 01 Condition: Good Clinical Impression: Strain of toe of left foot Qualifiers: Encounter type: initial encounter Qualified Code(s): S96.912A - Strain of unspecified muscle and tendon at ankle and foot level, left foot, initial encounter - Discharge Information *PRESCRIPTION DRUG MONITORING PROGRAM REVIEWED*: Not Applicable *COPY OF PRESCRIPTION DRUG MONITORING REPORT IN PATIENT BERTO: Not Applicable Instructions: Foot Sprain Referrals: Toño Vaughn PA-C [Primary Care Provider] - Forms: ED Department Discharge Additional Instructions: 1. Rest 2. wear splint for 5-7 days as needed to help with any pain or discomfort 3. Can use tylenol and ibuprofen as needed for pain and discomfort 4. Diet as tolerated 5. Activity as tolerated 6. Elevated the injured area above the level of the heart to decrease swelling and discomfort. 7. Use ice 3-4 times a day at 20-minute intervals to help with any swelling and discomfort 8. Follow-up with your primary care provider symptoms continue or to progress 9. Follow with any questions or concerns 10. Discharge information has been provided regarding your injury - Assessment/Plan Assessment:: 1. left foot injury 2. Left toe sprain
--- NOTE | 2021-02-02 16:36 | CR ---
[id number] RAD/RAD Foot Left 2V EXAM: RAD Foot Left 2V CLINICAL DATA: TRAUMA COMPARISON: No previous similar exam is available. FINDINGS: No acute fracture or dislocation is seen There are pre-existing degenerative flexion deformities of the interphalangeal and metatarsophalangeal joints. IMPRESSION: DEGENERATIVE CHANGES Jameel Cornell MD 02/02/21 [id number] Thank you for allowing us to participate in the care of your patient.
[2021-02-02 19:23] VITALS: BP 128/87; PULSE 92
== END 2021-02-02 16:47 | disposition home or self-care (01) ==
LOC: VM.ED 15:40
DX: S96.912A Strain of unspecified muscle and tendon at ankle and foot level, left foot, initial encounter (principal); Z88.8 Allergy status to other drugs, medicaments and biological substances; Z88.6 Allergy status to analgesic agent; W22.09XA Striking against other stationary object, initial encounter
CPT/HCPCS: 73620-LT; 99283; 99283-25

== ENCOUNTER 2021-03-02 14:45 | Emergency (ER) | payer MEDICARE, MEDICAID ==
[2021-03-02] MEDS ORDERED: diphenhydrAMINE 50 MG/ML SDV IM ONE (15:06)
[2021-03-02] MEDS ORDERED: Ketorolac 30 MG/ML SDV IM ONE (15:07)
[2021-03-02] MEDS ORDERED: Ibuprofen 200 MG Tab PO ONE (15:47)
[2021-03-02 16:28] VITALS: BP 128/77; PULSE 85
--- NOTE | 2021-03-02 20:24 | EDM.PDOC ---
ED HPI GENERAL MEDICAL PROBLEM - General Chief Complaint: Headache Stated Complaint: MIGRAIN Time Seen by Provider: 03/02/21 14:52 Source of Information: Reports: Patient History Limitations: Reports: No Limitations - History of Present Illness INITIAL COMMENTS - FREE TEXT/NARRATIVE: Pt. presents to ER with complaints of migraine headache. She states that the headache started yesterday. She states that she is nauseated, has not vomited. Denies any fever or chills. No recent head trauma. Denies any vision loss or change. She does complain of photophobia, is using sunglasses in the room. Pt. denies any numbness/tingling in extremities or face. No weakness. Denies any vision loss or change. No numbness or tingling. Onset: Today Onset Date: 03/02/21 Location: Reports: Head Quality: Reports: Ache Associated Symptoms: Reports: Nausea/Vomiting Headache Pain Score (Numeric/FACES): 10 - Related Data Allergies Allergy/AdvReac Type Severity Reaction Status Date / Time aspirin Allergy Nausea Verified 03/02/21 16:29 ketorolac tromethamine Allergy Nausea Verified 03/02/21 16:29 [From Toradol] sumatriptan [From Imitrex] Allergy Nausea Verified 03/02/21 16:29 sumatriptan succinate Allergy Nausea Verified 03/02/21 16:29 [From Imitrex] Home Meds: Home Meds Ibuprofen 400 mg PO Q4H PRN 07/20/14 [History] Past Medical History - Past Health History Medical/Surgical History: Denies Medical/Surgical History DIRECTOR OF CAMPUS RECREATION History: Reports: Other (See Below) Other DIRECTOR OF CAMPUS RECREATION 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 Hysterectomy. Breast Reduction Neurological History: Reports: Migraines Oncologic (Cancer) History: Reports: Malignant Melanoma - Past Surgical History Female Surgical History: Reports: Hysterectomy Musculoskeletal Surgical History: Reports: Arthroscopic Procedure, Carpal Tunnel Other Musculoskeletal Surgeries/Procedures:: Patient states she has cancer in her leg and is not treating it Social & Family History - Tobacco Use Tobacco Use Status *Q: Never Tobacco User - Caffeine Use Caffeine Use: Reports: Soda - Recreational Drug Use Recreational Drug Use: No ED ROS GENERAL - Review of Systems Review Of Systems: Comprehensive ROS is negative, except as noted in HPI. ED EXAM, GENERAL - Physical Exam Exam: See Below Exam Limited By: No Limitations General Appearance: Alert, WD/WN, No Apparent Distress Eye Exam: Bilateral Eye: EOMI, Normal Fundi, Normal Inspection, PERRL Throat/Mouth: Normal Inspection, Normal Lips, Normal Teeth, Normal Gums, Normal Oropharynx, Normal Voice, No Airway Compromise Head: Atraumatic, Normocephalic Neurological: Alert, Oriented, CN II-XII Intact, Normal Cognition, Normal Gait, Normal Reflexes, No Motor/Sensory Deficits Psychiatric: Normal Affect, Normal Mood Skin Exam: Warm, Dry, Intact Course - Vital Signs Last Recorded V/S: Last Vital Signs Temp 36.8 C 03/02/21 14:50 Pulse 85 03/02/21 14:50 Resp 16 03/02/21 14:50 BP 128/77 03/02/21 14:50 Pulse Ox 100 03/02/21 14:50 - Orders/Labs/Meds Meds: Medications Discontinued Medications Generic Name Dose Route Start Last Admin Trade Name Freq PRN Reason Stop Dose Admin Chlorpromazine HCl 50 mg 03/02/21 15:06 03/02/21 15:25 Chlorpromazine 25 Mg/Ml Amp IM 03/02/21 15:07 50 mg ONETIME ONE Administration Diphenhydramine HCl 50 mg 03/02/21 15:06 03/02/21 15:24 Diphenhydramine 50 Mg/Ml Sdv IM 03/02/21 15:07 50 mg ONETIME ONE Administration Ibuprofen 600 mg 03/02/21 15:47 03/02/21 15:55 Ibuprofen 200 Mg Tab PO 03/02/21 15:48 600 mg ONETIME ONE Administration Ketorolac Tromethamine 30 mg 03/02/21 15:07 Ketorolac 30 Mg/Ml Sdv IM 03/02/21 15:08 ONETIME ONE Departure - Departure Time of Disposition: 16:00 Disposition: Home, Self-Care 01 Clinical Impression: Migraine - Discharge Information Instructions: Migraine Headache Referrals: Toño Vaughn PA-C [Primary Care Provider] - Forms: ED Department Discharge Additional Instructions: home to rest Ibuprofen 200mg 3 tabs every 6 hours as needed for pain Re-check in clinic in 5-7 days Sepsis Event Note (ED) - Evaluation Sepsis Screening Result: No Definite Risk - Focused Exam Vital Signs: Vital Signs Temp Pulse Resp BP Pulse Ox 03/02/21 14:50 36.8 C 85 16 128/77 100 - Problem List Review Problem List Initiated/Reviewed/Updated: Yes - Assessment/Plan Plan: home to rest Ibuprofen 200mg 3 tabs every 6 hours as needed for pain Re-check in clinic in 5-7 days
== END 2021-03-02 16:00 | disposition home or self-care (01) ==
LOC: VM.ED 14:45
DX: G43.909 Migraine, unspecified, not intractable, without status migrainosus (principal); Z88.8 Allergy status to other drugs, medicaments and biological substances; Z88.6 Allergy status to analgesic agent
CPT/HCPCS: 96372; 99283; A9270-GY; J1200; J3230

== ENCOUNTER 2021-12-27 17:04 | Emergency (ER) | payer MEDICARE, MEDICAID ==
[2021-12-27] MEDS ORDERED: diphenhydrAMINE 50 MG/ML SDV IM ONE (17:18)
[2021-12-27 19:16] VITALS: BP 113/76; PULSE 78
== END 2021-12-27 18:00 | disposition home or self-care (01) ==
LOC: VM.ED 17:04
DX: G43.909 Migraine, unspecified, not intractable, without status migrainosus (principal); Z88.6 Allergy status to analgesic agent; Z88.8 Allergy status to other drugs, medicaments and biological substances
CPT/HCPCS: 96372; 99283; J1200; J3230

== ENCOUNTER 2022-04-15 16:09 | Inpatient (IN) | payer MEDICARE, OTHER, MEDICAID ==
[2022-04-15] MEDS ORDERED: cefTRIAXone 1 GM Vial IVPUSH ONE (16:44)
[2022-04-15] MEDS ORDERED: Sodium Chloride 0.9% 1,000 ML IV SCH (16:45)
[2022-04-15 17:21] LABS: ANION GAP 12.1 mmol/L (5-15)
[2022-04-15] MEDS: NS with KCl 40mEq 1,000 ML IV SCH ×2 (17:45→23:58)
[2022-04-15] MEDS ORDERED: Ondansetron 4 MG Tab.DIS PO PRN (19:55)
[2022-04-15] MEDS ORDERED: Magnesium Sulfate/Water 2 GM in Premix Bag 1 BAG IV ONE (20:22)
[2022-04-15] MEDS ORDERED: Baclofen 10 MG Tab PO PRN (20:23)
[2022-04-15] MEDS ORDERED: Promethazine 25 MG Tab PO PRN (20:23)
[2022-04-15] MEDS: oxyCODONE 5 MG Tab PO PRN (21:00)
[2022-04-16] MEDS: oxyCODONE 5 MG Tab PO PRN ×4 (02:59→20:02)
[2022-04-16] MEDS: NS with KCl 40mEq 1,000 ML IV SCH (03:59)
[2022-04-16] MEDS: Ibuprofen 200 MG Tab PO PRN (06:16)
[2022-04-16 07:23] LABS: ANION GAP 13.7 mmol/L (5-15)
[2022-04-16] MEDS: Enoxaparin 40 MG/0.4 ML Syringe SUBCUT SCH (11:25)
[2022-04-16] MEDS ORDERED: cefTRIAXone 2 GM Vial IVPUSH SCH (17:00)
[2022-04-16] MEDS ORDERED: cefTRIAXone 1 GM Vial IVPUSH SCH (17:00)
[2022-04-16] MEDS: Sodium Chloride 0.9% 10 ML Syringe FLUSH PRN (20:04)
[2022-04-17] MEDS: oxyCODONE 5 MG Tab PO PRN ×5 (05:53→23:01)
[2022-04-17 07:02] LABS: ANION GAP 12.3 mmol/L (5-15)
[2022-04-17] MEDS: Piperacillin/Tazobactam 3.375 GM in Sodium Chloride 0.9% 100 ML IV SCH ×2 (09:14→16:39)
[2022-04-17] MEDS: Enoxaparin 40 MG/0.4 ML Syringe SUBCUT SCH (11:27)
[2022-04-17] MEDS: Potassium Chloride 10 MEQ Tab.ER PO SCH ×2 (12:29→15:00)
[2022-04-17] MEDS: Acetaminophen 500 MG Tab PO PRN (18:36)
[2022-04-17] MEDS: Sodium Chloride 0.9% 10 ML Syringe FLUSH PRN (20:10)
[2022-04-17] MEDS: Ibuprofen 200 MG Tab PO PRN (20:11)
[2022-04-18] MEDS: Piperacillin/Tazobactam 3.375 GM in Sodium Chloride 0.9% 100 ML IV SCH ×3 (00:24→17:18)
[2022-04-18] MEDS: oxyCODONE 5 MG Tab PO PRN ×3 (04:43→18:50)
[2022-04-18 08:41] LABS: ANION GAP 10.3 mmol/L (5-15)
[2022-04-18] MEDS: Potassium Chloride 10 MEQ Tab.ER PO SCH ×2 (09:22→21:04)
[2022-04-18] MEDS: Enoxaparin 40 MG/0.4 ML Syringe SUBCUT SCH (12:08)
[2022-04-18] MEDS: Acetaminophen 500 MG Tab PO PRN ×2 (12:08→21:10)
[2022-04-18] MEDS ORDERED: Bisacodyl 5 MG Tab PO PRN (18:40)
[2022-04-19] MEDS: Piperacillin/Tazobactam 3.375 GM in Sodium Chloride 0.9% 100 ML IV SCH ×3 (01:20→17:26)
[2022-04-19] MEDS: oxyCODONE 5 MG Tab PO PRN ×4 (03:14→22:34)
[2022-04-19] MEDS: traZODone 50 MG Tab PO PRN ×2 (03:22→22:36)
[2022-04-19] MEDS ORDERED: Bisacodyl 5 MG Tab PO PRN (08:51)
[2022-04-19] MEDS: Furosemide 20 MG Tab PO SCH (09:11)
[2022-04-19] MEDS: Potassium Chloride 10 MEQ Tab.ER PO SCH ×2 (09:11→20:04)
[2022-04-19] MEDS: Enoxaparin 40 MG/0.4 ML Syringe SUBCUT SCH (11:00)
[2022-04-19] MEDS: Magnesium Oxide 400 MG Tab PO SCH (11:44)
[2022-04-19] MEDS: Acetaminophen 500 MG Tab PO PRN (20:05)
[2022-04-20] MEDS: Piperacillin/Tazobactam 3.375 GM in Sodium Chloride 0.9% 100 ML IV SCH ×2 (00:53→08:35)
[2022-04-20] MEDS: oxyCODONE 5 MG Tab PO PRN ×2 (05:49→10:20)
[2022-04-20] MEDS: Potassium Chloride 10 MEQ Tab.ER PO SCH (08:34)
[2022-04-20] MEDS: Furosemide 20 MG Tab PO SCH (08:35)
[2022-04-20] MEDS: Magnesium Oxide 400 MG Tab PO SCH (08:35)
[2022-04-20 09:21] VITALS: BP 130/76; PULSE 90
[2022-04-20] MEDS: Enoxaparin 40 MG/0.4 ML Syringe SUBCUT SCH (11:38)
[2022-04-20] MEDS ORDERED: Bisacodyl 10 MG Supp RECTAL PRN (12:01)
== END 2022-04-20 14:15 | disposition home or self-care (01) | DRG 603 ==
LOC: VM.ED 16:09 → VM.MS 17:28
PROVIDERS: ADMIT Nurse Practitioner Family; ATTEND Nurse Practitioner Family
DX: L03.116 Cellulitis of left lower limb (principal); E87.6 Hypokalemia; Z85.820 Personal history of malignant melanoma of skin; Z88.2 Allergy status to sulfonamides; M79.7 Fibromyalgia; M79.605 Pain in left leg; G89.29 Other chronic pain; M43.16 Spondylolisthesis, lumbar region; G43.909 Migraine, unspecified, not intractable, without status migrainosus; Z96.642 Presence of left artificial hip joint; Z88.1 Allergy status to other antibiotic agents; Z88.5 Allergy status to narcotic agent; Z88.8 Allergy status to other drugs, medicaments and biological substances; Z79.899 Other long term (current) drug therapy; Z87.891 Personal history of nicotine dependence; Z85.828 Personal history of other malignant neoplasm of skin
CPT/HCPCS: 36415; 80053; 83605; 83735; 85025; 87040 ×2; 93005; J0696; J7030; 80048; 84145; 85027; 86140; 97116-GP; 97162-GP; A9270-GY; J1650; J2543; J3475; J3480; J3490

== ENCOUNTER 2022-05-16 09:57 | Emergency (ER) | payer MEDICARE, OTHER, MEDICAID ==
[2022-05-16] MEDS: diphenhydrAMINE 50 MG/ML SDV IM ONE (10:12)
[2022-05-16 10:24] VITALS: BP 100/65; PULSE 92
== END 2022-05-16 10:27 | disposition home or self-care (01) ==
LOC: VM.ED 09:57
DX: G43.909 Migraine, unspecified, not intractable, without status migrainosus (principal); Z88.1 Allergy status to other antibiotic agents; Z88.8 Allergy status to other drugs, medicaments and biological substances
CPT/HCPCS: 96372; 99283; J1200; J3230

== ENCOUNTER 2022-08-26 16:09 | Emergency (ER) | payer MEDICARE, OTHER, MEDICAID ==
[2022-08-26] MEDS: diphenhydrAMINE 50 MG/ML SDV IM ONE (16:35)
[2022-08-26] MEDS: Ondansetron 4 MG Tab.DIS PO ONE (16:35)
[2022-08-26 17:26] VITALS: BP 127/76; PULSE 70
== END 2022-08-26 17:13 | disposition home or self-care (01) ==
LOC: VM.ED 16:09 → SUPCPDRO 16:09 → VM.ED 17:13
DX: G43.909 Migraine, unspecified, not intractable, without status migrainosus (principal); Z90.710 Acquired absence of both cervix and uterus; Z88.8 Allergy status to other drugs, medicaments and biological substances; Z88.1 Allergy status to other antibiotic agents; Z88.5 Allergy status to narcotic agent; Z79.899 Other long term (current) drug therapy
CPT/HCPCS: 96372; 99283; A9270-GY; J1200; J3230

== ENCOUNTER 2022-11-07 15:09 | Emergency (ER) | payer MEDICARE, OTHER, MEDICAID ==
[2022-11-07] MEDS: Take Home: Ondansetron 4 MG Tab.DIS, 5 Tab Pack PO ONE (15:48)
[2022-11-07] MEDS: Prochlorperazine 10 MG/2 ML SDV IM ONE (15:48)
[2022-11-07] MEDS: diphenhydrAMINE 50 MG/ML SDV IM ONE (15:49)
[2022-11-07 16:00] VITALS: BP 142/80; PULSE 74
== END 2022-11-07 16:05 | disposition home or self-care (01) ==
LOC: VM.ED 15:09
DX: G43.909 Migraine, unspecified, not intractable, without status migrainosus (principal); Z88.6 Allergy status to analgesic agent; Z88.1 Allergy status to other antibiotic agents; Z88.5 Allergy status to narcotic agent; Z88.8 Allergy status to other drugs, medicaments and biological substances; Z87.891 Personal history of nicotine dependence
CPT/HCPCS: 96372; 99283; J0780; J1200; Q0162

== ENCOUNTER 2023-03-28 10:13 | Emergency (ER) | payer MEDICARE, OTHER, MEDICAID ==
[2023-03-28] MEDS ORDERED: Ondansetron 4 MG/2 ML SDV IM ONE (10:41)
[2023-03-28] MEDS ORDERED: diphenhydrAMINE 50 MG/ML SDV IM ONE (10:41)
[2023-03-28 11:01] VITALS: BP 112/76; PULSE 87
== END 2023-03-28 11:25 | disposition home or self-care (01) ==
LOC: VM.ED 10:13
DX: G43.909 Migraine, unspecified, not intractable, without status migrainosus (principal); Z87.891 Personal history of nicotine dependence; Z88.1 Allergy status to other antibiotic agents; Z88.5 Allergy status to narcotic agent; Z88.6 Allergy status to analgesic agent; Z88.8 Allergy status to other drugs, medicaments and biological substances
CPT/HCPCS: 96372; 99283; J1200; J2405; J3230

== ENCOUNTER 2023-06-12 18:47 | Emergency (ER) | payer MEDICARE, OTHER, MEDICAID ==
[2023-06-12 19:00] VITALS: BP 95/57; PULSE 68
[2023-06-12] MEDS: Ondansetron 4 MG/2 ML SDV IM ONE (19:10)
[2023-06-12] MEDS: diphenhydrAMINE 50 MG/ML SDV IM ONE (19:10)
== END 2023-06-12 19:29 | disposition home or self-care (01) ==
LOC: VM.ED 18:47
DX: G43.909 Migraine, unspecified, not intractable, without status migrainosus (principal); Z90.710 Acquired absence of both cervix and uterus; Z88.6 Allergy status to analgesic agent; Z88.8 Allergy status to other drugs, medicaments and biological substances; Z88.0 Allergy status to penicillin; Z79.899 Other long term (current) drug therapy
CPT/HCPCS: 96372; 99283; J1200; J2405; J3230

== ENCOUNTER 2023-11-14 11:34 | Emergency (ER) | payer MEDICARE, OTHER, MEDICAID ==
[2023-11-14] MEDS: oxyCODONE 5 MG Tab PO ONE (11:58)
[2023-11-14] MEDS: Take Home: Acetaminophen/oxyCODONE 325-5 MG, 5 Tab Pack PO ONE (13:35)
[2023-11-14 14:26] VITALS: BP 116/77; PULSE 94
== END 2023-11-14 13:35 | disposition home or self-care (01) ==
LOC: VM.ED 11:34
DX: S63.502A Unspecified sprain of left wrist, initial encounter (principal); Z88.6 Allergy status to analgesic agent; Z88.5 Allergy status to narcotic agent; Z88.8 Allergy status to other drugs, medicaments and biological substances; Z79.899 Other long term (current) drug therapy; Z90.710 Acquired absence of both cervix and uterus; W01.0XXA Fall on same level from slipping, tripping and stumbling without subsequent striking against object, initial encounter; Y92.009 Unspecified place in unspecified non-institutional (private) residence as the place of occurrence of the external cause; Y93.89 Activity, other specified
CPT/HCPCS: 29125; 73110-LT; 99283; 99284-25; A9270-GY

== ENCOUNTER 2023-12-25 18:20 | Emergency (ER) | payer MEDICARE, OTHER, MEDICAID ==
[2023-12-25 18:33] VITALS: PULSE 101
[2023-12-25] MEDS: diphenhydrAMINE 50 MG/ML SDV IM ONE (18:51)
[2023-12-25] MEDS: Ondansetron 4 MG/2 ML SDV IM ONE (18:52)
[2023-12-25 19:11] VITALS: BP 138/88
== END 2023-12-25 19:10 | disposition home or self-care (01) ==
LOC: VM.ED 18:20
DX: G43.909 Migraine, unspecified, not intractable, without status migrainosus (principal); Z90.710 Acquired absence of both cervix and uterus; Z88.6 Allergy status to analgesic agent; Z88.1 Allergy status to other antibiotic agents; Z88.8 Allergy status to other drugs, medicaments and biological substances
CPT/HCPCS: 96372; 99283; J1200; J2405; J3230; 99284

== ENCOUNTER 2024-02-10 19:20 | Emergency (ER) | payer MEDICARE, OTHER, MEDICAID ==
[2024-02-10 19:34] VITALS: BP 130/76; PULSE 98
[2024-02-10] MEDS ORDERED: Dexamethasone 4 MG/ML SDV IVPUSH ONE (20:17)
[2024-02-10] MEDS ORDERED: Ondansetron 8 MG in Sodium Chloride 0.9% 100 ML IV ONE (20:17)
[2024-02-10] MEDS: Ondansetron 4 MG/2 ML SDV IVPUSH ONE (20:25)
[2024-02-10] MEDS: Sodium Chloride 0.9% 1,000 ML IV ONE (20:25)
[2024-02-10] MEDS: diphenhydrAMINE 50 MG/ML SDV IVPUSH ONE (20:26)
[2024-02-10] MEDS: Ketorolac 15 MG/ML SDV IVPUSH ONE (20:27)
== END 2024-02-10 21:19 | disposition home or self-care (01) ==
LOC: VM.ED 19:20
DX: G43.909 Migraine, unspecified, not intractable, without status migrainosus (principal); Z79.899 Other long term (current) drug therapy; Z88.5 Allergy status to narcotic agent; Z88.6 Allergy status to analgesic agent; Z88.8 Allergy status to other drugs, medicaments and biological substances
CPT/HCPCS: 96374; 96375; 99283; J1200; J1885; J2405; J7030

== ENCOUNTER 2024-08-09 10:55 | Emergency (ER) | payer MEDICARE, OTHER, MEDICAID ==
[2024-08-09 11:12] VITALS: BP 146/86; PULSE 78
[2024-08-09] MEDS: traMADol 50 MG Tab PO ONE (11:28)
[2024-08-09] MEDS: Acetaminophen/HYDROcodone 325-10 MG Tab PO ONE (13:18)
== END 2024-08-09 13:27 | disposition home or self-care (01) ==
LOC: VM.ED 10:55
DX: S82.832A Other fracture of upper and lower end of left fibula, initial encounter for closed fracture (principal); Z88.1 Allergy status to other antibiotic agents; Z88.5 Allergy status to narcotic agent; Z88.8 Allergy status to other drugs, medicaments and biological substances; Z79.899 Other long term (current) drug therapy; Z90.710 Acquired absence of both cervix and uterus; W00.0XXA Fall on same level due to ice and snow, initial encounter
CPT/HCPCS: 73590-LT; 99283; A9270-GY

== ENCOUNTER 2024-09-09 14:44 | Emergency (ER) | payer MEDICARE, OTHER, MEDICAID ==
[2024-09-09 15:00] VITALS: BP 132/88; PULSE 98
[2024-09-09] MEDS: diphenhydrAMINE 50 MG/ML SDV IM ONE (15:11)
[2024-09-09] MEDS: Prochlorperazine 10 MG/2 ML SDV IM ONE (15:11)
[2024-09-09] MEDS: Ondansetron 4 MG Tab.DIS PO ONE (15:12)
== END 2024-09-09 15:47 | disposition home or self-care (01) ==
LOC: VM.ED 14:44
DX: G43.909 Migraine, unspecified, not intractable, without status migrainosus (principal); Z88.8 Allergy status to other drugs, medicaments and biological substances; Z79.899 Other long term (current) drug therapy; Z79.891 Long term (current) use of opiate analgesic; Z90.710 Acquired absence of both cervix and uterus
CPT/HCPCS: 96372; 99283; 99284; A9270-GY; J0780; J1200

== ENCOUNTER 2024-12-02 16:49 | Emergency (ER) | payer MEDICARE, OTHER, MEDICAID ==
[2024-12-02 17:45] VITALS: BP 108/73; PULSE 90
[2024-12-02] MEDS: diphenhydrAMINE 50 MG/ML SDV IM ONE (18:10)
[2024-12-02] MEDS: Dexamethasone 4 MG/ML SDV IM ONE (18:10)
[2024-12-02] MEDS: Prochlorperazine 10 MG/2 ML SDV IM ONE (18:10)
== END 2024-12-02 18:15 | disposition home or self-care (01) ==
LOC: VM.ED 16:49
DX: G43.909 Migraine, unspecified, not intractable, without status migrainosus (principal); Z88.6 Allergy status to analgesic agent; Z88.5 Allergy status to narcotic agent; Z88.8 Allergy status to other drugs, medicaments and biological substances
CPT/HCPCS: 96372; 99283; J0780; J1100; J1200